=== PATIENT | female | born 1950 | race Caucasian/White ===

== ENCOUNTER 2016-07-01 13:25 | Emergency (ER) | payer MEDICARE ==
[2016-07-01 14:04] LABS: BASO % 0.2 % (0.1-1.2); EOS % 0.5 % (0.7-5.8); GRAN # 4.6 10_X3_uL (1.6-6.1); GRAN % 69.6 % (34.0-71.1); HEMATOCRIT 38.3 % (34-45); HEMOGLOBIN 13.4 g/dL (11.2-15.7); LYMPH # 1.4 10_X3_uL (1.2-3.7); LYMPH % 20.9 % (19.3-51.7); MEAN CORPUSCULAR VOLUME 88.7 fL (79-95); MEAN PLATELET VOLUME 10.3 fl (7.5-11.5); MONO # 0.6 10_X3_uL (0.2-0.9); MONO % 8.8 % (4.7-12.5); PLATELET COUNT 153 x10_3/uL (182-369); RED BLOOD COUNT 4.32 x10_6/uL (3.9-5.2); RED CELL DISTRIBUTION WIDTH 14.4 % (11.7-14.4); WHITE BLOOD COUNT 6.6 x10_3/uL (4.0-10.0)
[2016-07-01 14:21] LABS: ARTERIAL BLD GAS O2 SATURATION 96.5 % (94-98); ARTERIAL BLOOD GAS HCO3 22.6 mmol/L (22-26); ARTERIAL BLOOD GAS PCO2 35.4 mmHg (32-45); ARTERIAL BLOOD GAS pH 7.42 (7.35-7.45)
[2016-07-01 14:23] LABS: CALCIUM 9.3 mg/dL (8.7-10.7); POTASSIUM 3.1 mmol/L (3.5-5.1)
== END 2016-07-01 15:34 | disposition home or self-care (01) ==
LOC: ER 13:25
PROVIDERS: Family Medicine
DX: J44.1 Chronic obstructive pulmonary disease with (acute) exacerbation (principal); I10 Essential (primary) hypertension; I51.7 Cardiomegaly; Z88.0 Allergy status to penicillin; Z88.8 Allergy status to other drugs, medicaments and biological substances; Z79.899 Other long term (current) drug therapy; Z79.82 Long term (current) use of aspirin; Z90.710 Acquired absence of both cervix and uterus
CPT/HCPCS: 36415; 36600; 71010; 80048; 82550; 82553; 82803; 83605; 85025; 86738; 87040; 87449; 93005; 94664; 99070; 99285-25